=== PATIENT | male | born 2000 | race Caucasian/White ===

== ENCOUNTER 2024-01-22 02:57 | Emergency (ER) | payer OTHER ==
[~2024-01-22] VITALS: Ht 175.3 cm; Wt 63.5 kg
[2024-01-22 03:50] VITALS: BP 97/79; TEMP 98
[2024-01-22] MEDS ORDERED: ONDANSETRON HCL/PF 4 MG/2 ML VIAL ONE (04:08)
[2024-01-22] MEDS ORDERED: ONDA4TAB11 PO (04:28)
[2024-01-22] MEDS: IV NS 0.9% 1,000 ML BAG IV ONE (04:53)
[2024-01-22] MEDS: ONDANSETRON HCL/PF - ER 4 MG/2 ML VIAL IV ONE (04:53)
[2024-01-22 06:07] VITALS: O2SAT 98
== END 2024-01-22 06:07 | disposition home or self-care (01) ==
LOC: ER 03:34
DX: R11.2 Nausea with vomiting, unspecified (principal); A05.9 Bacterial foodborne intoxication, unspecified; Z88.0 Allergy status to penicillin
CPT/HCPCS: 99283; 96374; 96361; J2405 ×2; J7030 ×2; A4223